=== PATIENT | female | born 1990 | race Two or more races ===

== ENCOUNTER 2019-09-14 21:24 | Emergency (ER) | payer OTHER ==
[~2019-09-14] VITALS: Ht 167.6 cm; Wt 56.7 kg
[2019-09-14 21:25] VITALS: BP 127/78
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
--- NOTE | 2019-09-14 22:00 | NUR ---
ED Nurse Note: xray at bedside
[2019-09-14] MEDS ORDERED: TYLENOL EXTRA500 MG ORAL (22:08)
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
[2019-09-14 22:50] VITALS: BP 122/75
--- NOTE | 2019-09-14 22:50 | NUR ---
ER DISCHARGE NOTE: Patient is cleared to be discharged home per ERMD, pt is aox4, 99% on room air, with stable vital signs. pt was given dc and prescription instructions, pt was able to verbalize understanding, pt id band removed. pt is able to ambulate with steady gait. pt took all belongings.
== END 2019-09-14 22:50 | disposition home or self-care (01) ==
LOC: EDBD 21:24 → EMR 22:12
DX: R20.2 Paresthesia of skin (principal); F41.9 Anxiety disorder, unspecified; Y04.2XXA Assault by strike against or bumped into by another person, initial encounter; Y92.9 Unspecified place or not applicable
CPT/HCPCS: 73060; Z7502; 99283